=== PATIENT | male | born 1940 | race Caucasian/White ===

== ENCOUNTER 2017-03-31 05:57 | Day surgery (SDC) | payer MEDICARE ==
[2017-03-31] MEDS ORDERED: LIDOCAINE 2% MDV (20MG/ML) 20ML VIAL IV ONE ×2 (05:58)
[2017-03-31] MEDS ORDERED: TETRACAINE HCL 0.5% 15 ML OPTH BTL OPTH ONE (05:58)
[2017-03-31] MEDS ORDERED: NEOMYCIN/POLY./DEXAM OPTH OINT OPTH ONE (05:58)
[2017-03-31] MEDS ORDERED: EPINEPHRINE 1 MG/ML AMPUL SQ ONE (05:58)
[2017-03-31] MEDS ORDERED: PROPOFOL 10 MG/ML VIAL IV ONE (05:58)
[2017-03-31] MEDS ORDERED: CIPROFLOXACIN HCL 0.0015 GM, PHENYLEPHRINE HCL 0.05 GM, KETOROLAC TROMETHAMINE 0.000625 GM MC ONE ×5 (11:00)
--- NOTE | 2017-03-31 14:23 | Operative Note ---
DATE OF PROCEDURE: 03/31/17. PREOPERATIVE DIAGNOSIS: Nuclear sclerotic cataract, right eye. POSTOPERATIVE DIAGNOSIS: Nuclear sclerotic cataract, right eye. OPERATION: Phacoemulsification of cataractous lens with implantation of intraocular lens. LENS IMPLANT USED: Ortega Model PCB00 + 18.0 diopters. COMPLICATIONS: None. PROCEDURE IN DETAIL: Following a retrobulbar and facial block, the patient was prepped and draped in the usual fashion for eye surgery. A lid speculum was placed in the right eye after which a 2.4 mm tunnel wound was placed at the temporal limbus and dissected into clear cornea. A paracentesis was placed at 2 o'clock hours to the left and right of the initial incision and the chamber deepened with Viscoelastic. The keratome was then used to enter the anterior chamber after which the continuous circular capsulorrhexis was accomplished without difficulty using a bent needle and a Utrata forceps. Hydrodissection and hydrodelineation of the lens was performed after which the nucleus of the lens was removed using the Phaco handpiece in the [id number] technique. The residual cortical material was irrigated and aspirated from the eye after which the bag and chamber were re-examined. The bag was re-inflated with Viscoelastic and the intraocular lens injected into the capsular bag where it centered well. The Viscoelastic was then copiously irrigated and aspirated from the eye after which the temporal tunnel wound and paracentesis were hydrated and the wounds were examined. They were noted to be watertight. The lid speculum was removed from the eye and the eye patched and shielded. The patient was transferred to the recovery room in satisfactory condition and given an appointment to be reexamined in the clinic later today or as directed by Dr. Tobar. JOB NUMBER: [id number] [facility]
== END 2017-03-31 09:20 | disposition home or self-care (01) ==
LOC: SUR 05:57
PROVIDERS: ATTEND Ophthalmology
DX: H25.11 Age-related nuclear cataract, right eye (principal); Z79.01 Long term (current) use of anticoagulants; I10 Essential (primary) hypertension; E78.00 Pure hypercholesterolemia, unspecified
CPT/HCPCS: J0171

== ENCOUNTER 2018-11-13 14:01 | Emergency (ER) | payer MEDICARE ==
--- NOTE | 2018-11-13 14:22 | Emergency Department Record ---
History of Present Illness - General Chief Complaint: Arrythmia/Palpitations Stated Complaint: PACEMAKER GOING OFF Time Seen by Provider: 11/13/18 14:09 Source: Patient Mode of Arrival: Ambulatory Limitations: No limitations - History of Present Illness Initial Comments: The patient is here with his due to his defibrilator going off at home at least once and maybe twice. He had been in his normal state of healthy when he had an argument with his . He then was shocked and fell to the ground on grass. The patient may have been shocked a 2nd time about 20 seconds later. He denied any CP, SOB, or palpitations prior or since. MD Complaint: Palpitations Onset/Timin -: Minutes(s) Context: AICD discharge Arrythmia History: AICD Associated Symptoms: Denies other symptoms - Related Data Home Medications Medication Instructions Recorded Confirmed Last Taken Atorvastatin Calcium 20 mg PO DAILY 11/13/18 11/13/18 Unknown Ergocalciferol (Vitamin D2) 50,000 unit PO WEEKLY 11/13/18 11/13/18 Unknown [Vitamin D2] Furosemide [Lasix] 20 mg PO DAILY 11/13/18 11/13/18 Unknown Potassium Chloride 10 meq PO DAILY 11/13/18 11/13/18 Unknown Sotalol HCl [Sotalol] 80 mg PO DAILY 11/13/18 11/13/18 Unknown Allergies Allergy/AdvReac Type Severity Reaction Status Date / Time No Known Drug Allergies Allergy Verified 02/16/14 14:16 Travel Screening - Travel/Exposure Within Last 30 Days Have you traveled within the last 30 days?: No Review of Systems Constitutional: Denies: Chills, Fever Eyes: Denies: Eye discharge ENT: Denies: Congestion Respiratory: Denies: Cough, Dyspnea Cardiovascular: Denies: Arrhythmia Endocrine: Denies: Fatigue Gastrointestinal: Denies: Nausea Genitourinary: Denies: Dysuria Musculoskeletal: Denies: Arthralgia Neurological: Denies: Abnormal gait Past Medical History - SOCIAL HISTORY Smoking Status: Never smoker - RESPIRATORY Hx Respiratory Disorders: Yes Hx Dyspnea: Yes - CARDIOVASCULAR Hx Cardio Disorders: Yes Hx Hypertension: Yes - NEURO Hx Neuro Disorders: No - GI Hx GI Disorders: No - Hx Genitourinary Disorders: Yes Hx Prostate Problems: Yes - ENDOCRINE Hx Endocrine Disorders: No - MUSCULOSKELETAL Hx Musculoskeletal Disorders: No - PSYCH Hx Psych Problems: No - HEMATOLOGY/ONCOLOGY Hx Hematology/Oncology Disorders: Yes Hx Bruising: Yes (occass.) Hx Cancer: Yes (prostate stable x's 10 years) Hx Chemotherapy: No Hx Radiation Therapy: No Family Medical History Any Significant Family History?: Yes Hx Heart Disease: Brother/Sister Physical Exam - General General Appearance: Alert, Oriented x3, Cooperative, No acute distress - Head Head exam: Atraumatic, Normocephalic, Normal inspection - Eye Eye exam: Normal appearance, PERRL - ENT Throat exam: Normal inspection. negative: Tonsillar erythema, Tonsillar exudate - Neck Neck exam: Normal inspection, Full ROM. negative: Tenderness - Respiratory Respiratory exam: Normal lung sounds bilaterally. negative: Respiratory distress - Cardiovascular Cardiovascular Exam: Regular rate, Normal rhythm, Other (There is a crisp valve click from the mechanical valve.). negative: Normal heart sounds, Diastolic murmur, Systolic murmur - GI/Abdominal GI/Abdominal exam: Soft, Normal bowel sounds. negative: Tenderness - Extremities Extremities exam: Normal inspection, Full ROM, Normal capillary refill. negative: Tenderness - Back Back exam: Reports: Normal inspection - Neurological Neurological exam: Alert, Normal gait. negative: Abnormal gait, Motor sensory deficit - Psychiatric Psychiatric exam: negative: Anxious Course - Reevaluation(s) Reevaluation #1: The patient is doing well at this time. We did have his pacemaker interrogated and the patient was shocked twice and was in VT both times and possibly VF once. Due to that fact I did discuss the case with Dr. Brasher at [facility] for [facility] and he did accept the patient for Dr. Dawson. 11/13/18 16:04 Reevaluation #2: The patient is doing very well at this time. He has no pain or discomfort and has had no malignant heart rhythms while he has been here. We are still waiting on a bed at [facility]. 11/13/18 17:12 Reevaluation #3: The patient is doing very well at this time. He has been exhibiting no malignant rhythms and has no pain, SOB, or any chest discomfort. The patient does have a bed at [facility] and we will continue with his transfer. 11/13/18 18:39 Medical Decision Making - Data Complexity MDM Data: Labs Ordered and/or Reviewed, EKG Ordered and/or Reviewed - Lab Data Result diagrams: 11/13/18 14:30 11/13/18 14:30 - EKG Data -: EKG Interpreted by Me (Atrial sensed ventricular paced rhythm.) Disposition Disposition: Transfer Clinical Impression: AICD discharge Disposition: Acute Care Hospital Transfer Transfer To: [facility] Reason For Transfer: Cardiology. Accepting Physician: Anshu Time Discussed w/Accepting Physician: 16:06 Condition: (2) Stable Forms: Patient Portal Access Time of Disposition: 16:06 Quality - Quality Measures Quality Measures: N/A - Blood Pressure Screening View Details: Yes Does Patient Have Any of the Following: No Blood Pressure Classification: Pre-Hypertensive BP Reading Systolic Measurement: 141 Diastolic Measurement: 81 Screening for High Blood Pressure: < Pre-Hypertensive BP, F/U Documented > [G8950] Pre-Hypertensive Follow-up Interventions: Referral to alternative/primary care provider.
[2018-11-13 14:35] LABS: ABSOLUTE NEUTROPHIL COUNT 5.54; BASO % 0.3 % (0-6); EOS % 3.2 % (0-6); GRAN % 62.9 % (47-80); HEMATOCRIT 45.3 % (42.0-52.0); LYMPH % 23.5 % (16-45); MEAN CELL VOLUME 93.6 fl (81-97); MEAN CORPUSCULAR HEMOGLOBIN 33.1 pg (27-33); MEAN CORPUSCULAR HGB CONC 35.3 g/dl (32-36); MEAN PLATELET VOLUME 10.5 fl (7.4-10.4); MONO % 10.1 % (0-9); PLATELET COUNT 168 K/uL (130-400); RED BLOOD COUNT 4.84 M/uL (4.40-5.70); RED CELL DISTRIBUTION WIDTH 13.4 % (11.5-14.5); WHITE BLOOD COUNT W/O DIFF 8.8 K/uL (4.2-12.2)
[2018-11-13 14:50] LABS: CREATININE 0.8 mg/dL (0.7-1.2); EST GLOMERULAR FILTRATION RATE > 60 mL/min; TOTAL PROTEIN 6.5 g/dL (6.6-8.7)
[2018-11-13 14:51] LABS: INR 3.3; PARTIAL THROMBOPLASTIN TIME 39.9 SECONDS (24.5-39.1); PROTHROMBIN TIME (PATIENT) 32.2 SECONDS (9.5-12.1)
[2018-11-13 14:52] LABS: GLUCOSE,RANDOM 105 mg/dL (74-109)
[2018-11-13 14:55] LABS: ALB/GLOB RATIO 1.6 (1.1-1.8); ALKALINE PHOSPHATASE 116 U/L (40-129); ALT/SGPT 21 U/L (<41); AST/SGOT 19 U/L (10.0-50.0); CREATINE PHOSPHOKINASE 80 U/L (39-308)
[2018-11-13 15:00] LABS: CKMB 2.2 ng/mL (<6.73)
[2018-11-13 15:06] LABS: THYROID STIMULATING HORMONE 2.07 uIU/mL (0.270-4.20)
[2018-11-13 15:07] LABS: BLOOD UREA NITROGEN 15 mg/dL (8-23)
== END 2018-11-13 19:07 | disposition short-term general hospital (02) ==
LOC: ER 14:01
DX: T82.198A Other mechanical complication of other cardiac electronic device, initial encounter (principal); Y71.0 Diagnostic and monitoring cardiovascular devices associated with adverse incidents; I10 Essential (primary) hypertension; Y92.007 Garden or yard of unspecified non-institutional (private) residence as the place of occurrence of the external cause
CPT/HCPCS: 80053; 82550; 82553; 84443; 84484; 85025; 85610; 85730; 93005; 93010; 99285

== ENCOUNTER 2019-01-17 13:51 | Emergency (ER) | payer MEDICARE ==
[2019-01-17 14:57] LABS: ABSOLUTE NEUTROPHIL COUNT 4.87; BASO % 0.5 % (0-6); EOS % 1.5 % (0-6); GRAN % 55.8 % (47-80); HEMATOCRIT 45.3 % (42.0-52.0); HEMOGLOBIN 15.7 gm/dl (14.0-18.0); LYMPH % 29.9 % (16-45); MEAN CORPUSCULAR HEMOGLOBIN 32.9 pg (27-33); MEAN CORPUSCULAR HGB CONC 34.7 g/dl (32-36); MEAN PLATELET VOLUME 10.1 fl (7.4-10.4); MONO % 12.3 % (0-9); PLATELET COUNT 218 K/uL (130-400); RED BLOOD COUNT 4.77 M/uL (4.40-5.70); RED CELL DISTRIBUTION WIDTH 13.6 % (11.5-14.5); WHITE BLOOD COUNT W/O DIFF 8.7 K/uL (4.2-12.2)
[2019-01-17 15:09] LABS: BLOOD UREA NITROGEN 26 mg/dL (8-23); CREATININE 0.9 mg/dL (0.7-1.2); EST GLOMERULAR FILTRATION RATE > 60 mL/min
[2019-01-17 15:12] LABS: GLUCOSE,RANDOM 101 mg/dL (74-109); INR 2.3; PROTHROMBIN TIME (PATIENT) 22.6 SECONDS (9.5-12.1)
--- NOTE | 2019-01-17 15:31 | Emergency Department Record ---
History of Present Illness - General Chief complaint: ENT Stated complaint: bit tongue Time Seen by Provider: 01/17/19 14:27 Mode of Arrival: Ambulatory - History of Present Illness Initial comments: bit his tongue yesterday eating food when his tongue was numb from the dentist. Onset/Timin -: Days(s) Location: Tongue Severity: Moderate Severity scale (1-10): 5 Quality: Aching Consistency: Constant Improves with: None Worsens with: None Context-Epistaxis: Warfarin use Context- Ear: Direct trauma Associated Symptoms: Other - Related Data Home Medications Medication Instructions Recorded Confirmed Last Taken Amiodarone HCl [Pacerone] 200 mg PO DAILY 01/17/19 01/17/19 01/17/19 Zafirlukast [Accolate] 20 mg PO DAILY 01/17/19 01/17/19 01/17/19 Allergies Allergy/AdvReac Type Severity Reaction Status Date / Time No Known Drug Allergies Allergy Verified 01/17/19 14:05 Travel Screening - Travel/Exposure Within Last 30 Days Have you traveled within the last 30 days?: No - Travel/Exposure Within Last Year Have you traveled outside the [place] in the last year?: No - Additonal Travel Details Have you been exposed to anyone with a communicable illness?: No - Travel Symptoms Symptom Screening: None Review of Systems Reviewed: No additional complaints except as noted below Constitutional: Reports: As per HPI. Denies: Chills, Fever, Malaise, Night sweats, Weakness, Weight change Eyes: Reports: As per HPI. Denies: Eye discharge, Eye pain, Photophobia, Vision change ENT: Reports: As per HPI. Denies: Congestion, Dental pain, Ear pain, Epistaxis, Hearing loss, Throat pain Respiratory: Reports: As per HPI. Denies: Cough, Dyspnea, Hemoptysis, Stridor, Wheezes Cardiovascular: Reports: As per HPI. Denies: Arrhythmia, Chest pain, Dyspnea on exertion, Edema, Murmurs, Orthopnea, Palpitations, Paroxysmal nocturnal dyspnea, Rheumatic Fever, Syncope Endocrine: Reports: As per HPI. Denies: Fatigue, Heat or cold intolerance, Polydipsia, Polyuria Gastrointestinal: Reports: As per HPI. Denies: Abdominal pain, Constipation, Diarrhea, Hematemesis, Hematochezia, Melena, Nausea, Vomiting Genitourinary: Reports: As per HPI. Denies: Dysuria, Frequency, Hematuria, Incontinence, Retention, Testicular pain, Testicular mass, Urgency Musculoskeletal: Reports: As per HPI. Denies: Arthralgia, Back pain, Gout, Joint swelling, Myalgia, Neck pain Skin: Reports: As per HPI. Denies: Bruising, Change in color, Change in hair/nails, Lesions, Pruritus, Rash Neurological: Reports: As per HPI. Denies: Abnormal gait, Confusion, Headache, Numbness, Paresthesias, Seizure, Tingling, Tremors, Vertigo, Weakness Psychiatric: Reports: As per HPI. Denies: Anxiety, Auditory hallucinations, Depression, Homicidal thoughts, Suicidal thoughts, Visual hallucinations Hematological/Lymphatic: Reports: As per HPI. Denies: Anemia, Blood Clots, Easy bleeding, Easy bruising, Swollen glands Past Medical History - SOCIAL HISTORY Smoking Status: Never smoker Alcohol Use: None Drug Use: None - RESPIRATORY Hx Respiratory Disorders: Yes Hx Dyspnea: Yes - CARDIOVASCULAR Hx Cardio Disorders: Yes Hx Hypertension: Yes - NEURO Hx Neuro Disorders: No - GI Hx GI Disorders: No - Hx Genitourinary Disorders: Yes Hx Prostate Problems: Yes - ENDOCRINE Hx Endocrine Disorders: No - MUSCULOSKELETAL Hx Musculoskeletal Disorders: No - PSYCH Hx Psych Problems: No - HEMATOLOGY/ONCOLOGY Hx Hematology/Oncology Disorders: Yes Hx Bruising: Yes (occass.) Hx Cancer: Yes (prostate stable x's 10 years) Hx Chemotherapy: No Hx Radiation Therapy: No Family Medical History Any Significant Family History?: Yes Hx Heart Disease: Brother/Sister Physical Exam - General General Appearance: Alert, Oriented x3, Cooperative, No acute distress - Head Head exam: Normal inspection - Eye Eye exam: Normal appearance, PERRL Pupils: Normal accommodation - ENT ENT exam: Normal exam, Mucous membranes moist, Normal external ear exam, Normal orophraynx, TM's normal bilaterally Ear exam: Normal external inspection. negative: External canal tenderness Nasal Exam: Normal inspection. negative: Discharge, Sinus tenderness Mouth exam: Other (tongue has a laceration side of the tongue and edges are approximated, bruise on the top of the tongue too.) Teeth exam: Other. negative: Dental caries Throat exam: Normal inspection. negative: Tonsillar erythema, Tonsillar exudate - Neck Neck exam: Normal inspection, Full ROM. negative: Tenderness - Respiratory Respiratory exam: Normal lung sounds bilaterally. negative: Respiratory distress - Cardiovascular Cardiovascular Exam: Regular rate, Normal rhythm, Normal heart sounds - GI/Abdominal GI/Abdominal exam: Soft, Normal bowel sounds. negative: Tenderness - Rectal Rectal exam: Deferred - exam: Deferred - Extremities Extremities exam: Normal inspection, Full ROM, Normal capillary refill. negative: Tenderness - Back Back exam: Reports: Normal inspection, Full ROM. Denies: Muscle spasm, Rash noted, Tenderness - Neurological Neurological exam: Alert, Normal gait, Oriented X3, Reflexes normal - Psychiatric Psychiatric exam: Normal affect, Normal mood - Skin Skin exam: Dry, Intact, Normal color, Warm Course Vital Signs 01/17/19 14:09 Pulse Rate 72 Respiratory 20 Rate Blood Pressure 131/70 Pulse Ox 96 - Reevaluation(s) Reevaluation #1: 01/17/19 15:28 talked about using vit K and decided the heart valve was to important and will just not take the coumadin today and tomorrow and use pressure and drink cold liquids and put ice in the mouth. Reevaluation #2: no sutures risk of infection is to high 01/17/19 15:30 Medical Decision Making - Lab Data Result diagrams: 01/17/19 14:45 01/17/19 14:45 Lab Results 01/17/19 01/17/19 01/17/19 Range/Units 14:45 14:45 14:45 WBC 8.7 (4.2-12.2) K/uL RBC 4.77 (4.40-5.70) M/uL Hgb 15.7 (14.0-18.0) gm/dl Hct 45.3 (42.0-52.0) % MCV 95.0 (81-97) fl MCH 32.9 (27-33) pg MCHC 34.7 (32-36) g/dl RDW 13.6 (11.5-14.5) % Plt Count 218 (130-400) K/uL MPV 10.1 (7.4-10.4) fl Gran % 55.8 (47-80) % Lymphocytes % 29.9 (16-45) % Monocytes % 12.3 H (0-9) % Eosinophils % 1.5 (0-6) % Basophils % 0.5 (0-6) % Absolute Neutrophils 4.87 PT 22.6 H (9.5-12.1) SECONDS INR 2.3 Sodium 142 (136-145) mmol/L Potassium 4.4 (3.4-4.5) mmol/L Chloride 105 (98-107) mmol/L Carbon Dioxide 26.0 (22-29) mmol/L Anion Gap 11.0 (7-16) BUN 26 H (8-23) mg/dL Creatinine 0.9 (0.7-1.2) mg/dL Estimated GFR > 60 mL/min Random Glucose 101 (74-109) mg/dL Calcium 10.4 H (8.8-10.2) mg/dL Disposition Clinical Impression: Tongue laceration Qualifiers: Encounter type: initial encounter Qualified Code(s): S01.512A - Laceration without foreign body of oral cavity, initial encounter Disposition: Home, Self-Care Condition: (1) Good Instructions: Laceration (ED) Additional Instructions: use ice and guaze for pressure on the tongue follow up with family Dr Daniels in one week No coumadin today or tomorrow Time of Disposition: 15:33 Quality - Quality Measures Quality Measures: N/A - Blood Pressure Screening Does Patient Have Any of the Following: No, Active Dx of HTN Blood Pressure Classification: Pre-Hypertensive BP Reading Systolic Measurement: 131 Diastolic Measurement: 70 Screening for High Blood Pressure: Patient Exclusion, Hx of HTN [G9744]
== END 2019-01-17 16:00 | disposition home or self-care (01) ==
LOC: ER 13:51
DX: S01.512A Laceration without foreign body of oral cavity, initial encounter (principal); R20.0 Anesthesia of skin; I10 Essential (primary) hypertension; W22.8XXA Striking against or struck by other objects, initial encounter; Y93.53 Activity, golf; Z95.2 Presence of prosthetic heart valve; Z79.01 Long term (current) use of anticoagulants
CPT/HCPCS: 80048; 85025; 85610; 99284